=== PATIENT | male | born 1975 | race Two or more races ===

== ENCOUNTER 2024-02-09 12:26 | Emergency (ER) | payer OTHER ==
[~2024-02-09] VITALS: Ht 154.9 cm; Wt 59.0 kg
[2024-02-09] MEDS ORDERED: LIDOCAINE 1%-EPI 1:100,000 20 ML VIAL ONE (13:33)
[2024-02-09] MEDS ORDERED: TDAP [DIPH/PERTUSSIS/TET] 0.5 ML VIAL IM ONE (13:42)
[2024-02-09] MEDS: LIDOCAINE 1%-EPI 1:100,000 20 ML VIAL TP ONE (14:23)
[2024-02-09] MEDS: TDAP [DIPH/PERTUSSIS/TET] 0.5 ML VIAL IM ONE (14:23)
[2024-02-09 15:35] VITALS: BP 142/74; TEMP 98.2; O2SAT 100
== END 2024-02-09 14:35 | disposition home or self-care (01) ==
LOC: EDSEX → ER 12:40
DX: S01.81XA Laceration without foreign body of other part of head, initial encounter (principal); R42 Dizziness and giddiness; I10 Essential (primary) hypertension; W18.2XXA Fall in (into) shower or empty bathtub, initial encounter; Y93.89 Activity, other specified; Y92.091 Bathroom in other non-institutional residence as the place of occurrence of the external cause; Y99.8 Other external cause status
CPT/HCPCS: 12053; 70450; 99284; A6403; J3490; 90715

== ENCOUNTER 2024-02-10 08:48 | Emergency (ER) | payer OTHER ==
[~2024-02-10] VITALS: Ht 154.9 cm; Wt 59.0 kg
[2024-02-10 09:05] VITALS: BP 151/82; TEMP 98.1
[2024-02-10 09:58] VITALS: O2SAT 99
== END 2024-02-10 09:59 | disposition home or self-care (01) ==
LOC: ER 08:54
DX: S01.81XD Laceration without foreign body of other part of head, subsequent encounter (principal); R51.9 Headache, unspecified; I10 Essential (primary) hypertension; Z48.00 Encounter for change or removal of nonsurgical wound dressing; X58.XXXD Exposure to other specified factors, subsequent encounter

== ENCOUNTER 2024-02-14 15:27 | Emergency (ER) | payer OTHER ==
[~2024-02-14] VITALS: Ht 154.9 cm; Wt 54.4 kg
[2024-02-14 16:14] VITALS: BP 157/85; TEMP 98.4
[2024-02-14 16:29] VITALS: O2SAT 99
== END 2024-02-14 16:29 | disposition home or self-care (01) ==
LOC: ER 15:52 → EDSEX 15:52 → ER 16:29
DX: S01.112D Laceration without foreign body of left eyelid and periocular area, subsequent encounter (principal); I10 Essential (primary) hypertension; Z48.02 Encounter for removal of sutures; X58.XXXD Exposure to other specified factors, subsequent encounter

== ENCOUNTER 2024-03-20 17:56 | Emergency (ER) | payer OTHER ==
[~2024-03-20] VITALS: Ht 142.2 cm; Wt 56.7 kg
[2024-03-20 18:20] VITALS: BP 160/63; TEMP 97.9
[2024-03-20] MEDS ORDERED: CEPHALEXIN MONOHYDRATE 500 MG CAPSULE PO ONE (18:34)
[2024-03-20] MEDS: CEPHALEXIN MONOHYDRATE 500 MG CAPSULE PO ONE (18:35)
[2024-03-20] MEDS ORDERED: CEPH500C2 PO (18:48)
[2024-03-20 19:07] VITALS: O2SAT 99
== END 2024-03-20 19:08 | disposition home or self-care (01) ==
LOC: ER 17:59
DX: T81.41XA Infection following a procedure, superficial incisional surgical site, initial encounter (principal); B99.8 Other infectious disease; L03.211 Cellulitis of face; I10 Essential (primary) hypertension